=== PATIENT | female | born 1970 | race Caucasian/White ===

== ENCOUNTER 2020-06-13 17:03 | Inpatient (IN) | payer OTHER ==
[~2020-06-13] VITALS: Ht 177.8 cm; Wt 93.9 kg
[~2020-06-13 17:03] MED LIST: BACTROBAN OINT22 GM EXT; MOBIC7.5 MG PO
[2020-06-13 17:55] LABS: HEMOGLOBIN 15.8 gm/dl (12.3-15.3); RED BLOOD COUNT 4.91 M/UL (4.00-5.10); WHITE BLOOD COUNT 15.3 K/UL (4.5-11.0)
[2020-06-13 18:20] LABS: BUN/CREATININE RATIO 9 (0-10)
[2020-06-13] MEDS ORDERED: ABILIFY30 MG PO (21:07)
[2020-06-13] MEDS ORDERED: AMOXICILLIN500 MG PO (21:07)
[2020-06-13] MEDS ORDERED: DELSYM30 MG/5 ML PO (21:08)
[2020-06-13] MEDS ORDERED: NEURONTIN 100100 MG PO (21:08)
[2020-06-13] MEDS ORDERED: DEPAKOTE ER500 MG PO (21:09)
[2020-06-13] MEDS ORDERED: DIABETA 5 MG TAB5 MG PO (21:09)
[2020-06-13] MEDS ORDERED: ZESTRIL5 MG PO (21:10)
[2020-06-13] MEDS ORDERED: OMEPRAZOLE20 MG PO (21:10)
[2020-06-13] MEDS ORDERED: CLARITIN10 M2 PO (21:10)
[2020-06-13] MEDS ORDERED: HYDROXYZINE HCL50 MG PO (21:10)
[2020-06-13] MEDS ORDERED: ZOCOR20 MG PO (21:11)
[2020-06-13] MEDS ORDERED: CYCLOBENZAPRINE10 MG PO (21:11)
[2020-06-13] MEDS ORDERED: DESYREL 50 MG T50 MG PO (21:11)
[2020-06-13] MEDS ORDERED: JANUMET 50-1,01 EACH PO (21:12)
[2020-06-13] MEDS ORDERED: VITAMIN D31250 MCG PO (21:13)
[2020-06-13] MEDS ORDERED: VENTOLIN HFA 66.7 GM INH (21:13)
[2020-06-13] MEDS ORDERED: FOLIC ACID 1 MG1 MG PO (21:13)
[2020-06-13] MEDS ORDERED: XYZAL5 MG PO (21:14)
[2020-06-13] MEDS ORDERED: ROBAXIN-750750 MG PO (21:14)
[2020-06-13] MEDS ORDERED: BASAGLAR K100 UNIT/1 SQ (21:15)
[2020-06-14 01:56] LABS: HEMOGLOBIN 14.2 gm/dl (12.3-15.3); RED BLOOD COUNT 4.53 M/UL (4.00-5.10)
[2020-06-14 02:30] LABS: BUN/CREATININE RATIO 8 (0-10)
[2020-06-15 04:36] LABS: HEMOGLOBIN 13.4 gm/dl (12.3-15.3); RED BLOOD COUNT 4.3 M/UL (4.00-5.10)
[2020-06-15 04:38] LABS: WHITE BLOOD COUNT 6.7 K/UL (4.5-11.0)
[2020-06-15 04:58] LABS: BUN/CREATININE RATIO 6 (0-10)
[2020-06-16 04:07] LABS: HEMOGLOBIN 12.5 gm/dl (12.3-15.3); RED BLOOD COUNT 4.03 M/UL (4.00-5.10)
[2020-06-16 04:39] LABS: BUN/CREATININE RATIO 6 (0-10)
[2020-06-16] MEDS ORDERED: DIVALPROEX SOD500 MG PO (11:44)
[2020-06-16] MEDS ORDERED: GLUCOPHAGE1000 MG PO (12:05)
== END 2020-06-16 15:01 | disposition home or self-care (01) | DRG 440 ==
LOC: ER1 17:03 → MED SURG 4 20:39 → CDU 20:39 → MED SURG 4 22:33
PROVIDERS: Internal Medicine; Physician Assistant; ADMIT Internal Medicine
DX: K85.90 Acute pancreatitis without necrosis or infection, unspecified (principal); Z90.49 Acquired absence of other specified parts of digestive tract; Z95.0 Presence of cardiac pacemaker; Z88.1 Allergy status to other antibiotic agents; Z88.5 Allergy status to narcotic agent; Z20.822 Contact with and (suspected) exposure to COVID-19; Z88.8 Allergy status to other drugs, medicaments and biological substances; R07.9 Chest pain, unspecified; E11.9 Type 2 diabetes mellitus without complications; I10 Essential (primary) hypertension; J44.9 Chronic obstructive pulmonary disease, unspecified; F17.210 Nicotine dependence, cigarettes, uncomplicated; F31.9 Bipolar disorder, unspecified; Z85.41 Personal history of malignant neoplasm of cervix uteri; E87.6 Hypokalemia
CPT/HCPCS: 36415; 71045; 76705; 80053; 81001; 82150; 82550; 82553; 82962; 83690; 83874; 84478; 84484; 85025; 85027; 96374; 96375; 99285; C9113; J1650; J2270; J2405; J3480; J7120; Q9967; U0002

== ENCOUNTER 2020-07-23 22:19 | Emergency (ER) | payer OTHER ==
[~2020-07-23 22:19] MED LIST changes: +ABILIFY30 MG PO; +AMOXICILLIN500 MG PO; +BASAGLAR K100 UNIT/1 SQ; +CLARITIN10 M2 PO; +CYCLOBENZAPRINE10 MG PO; +DELSYM30 MG/5 ML PO; +DEPAKOTE ER500 MG PO; +DESYREL 50 MG T50 MG PO; +DIABETA 5 MG TAB5 MG PO; +DIVALPROEX SOD500 MG PO; +FOLIC ACID 1 MG1 MG PO; +GLUCOPHAGE1000 MG PO; +HYDROXYZINE HCL50 MG PO; +JANUMET 50-1,01 EACH PO; +NEURONTIN 100100 MG PO; +OMEPRAZOLE20 MG PO; +ROBAXIN-750750 MG PO; +VENTOLIN HFA 66.7 GM INH; +VITAMIN D31250 MCG PO; +XYZAL5 MG PO; +ZESTRIL5 MG PO; +ZOCOR20 MG PO
[2020-07-23 23:22] LABS: HEMOGLOBIN 15.4 gm/dl (12.3-15.3); RED BLOOD COUNT 4.84 M/UL (4.00-5.10); WHITE BLOOD COUNT 10.8 K/UL (4.5-11.0)
[2020-07-23 23:39] LABS: BUN/CREATININE RATIO 4 (0-10)
== END 2020-07-24 03:11 | disposition home or self-care (01) ==
LOC: ER1 22:19
PROVIDERS: Emergency Medicine; Physician Assistant
DX: E87.6 Hypokalemia (principal); E11.9 Type 2 diabetes mellitus without complications; I11.9 Hypertensive heart disease without heart failure; E78.5 Hyperlipidemia, unspecified; F17.210 Nicotine dependence, cigarettes, uncomplicated; Z88.8 Allergy status to other drugs, medicaments and biological substances; Z79.899 Other long term (current) drug therapy
CPT/HCPCS: 70450; 71045; 80053; 80307; 81001; 82550; 82553; 83874; 84484; 85025; 93005; 99284; 99285

== ENCOUNTER 2020-10-19 18:30 | Emergency (ER) | payer OTHER ==
[2020-10-19 19:13] LABS: HEMOGLOBIN 15.5 gm/dl (12.3-15.3); RED BLOOD COUNT 4.89 M/UL (4.00-5.10); WHITE BLOOD COUNT 9.9 K/UL (4.5-11.0)
[2020-10-19 19:26] LABS: BUN/CREATININE RATIO 11 (0-10)
[2020-10-19] MEDS ORDERED: MACROBID 100 M100 M1 PO (22:01)
[2020-10-19] MEDS ORDERED: MOBIC15 MG PO (22:01)
== END 2020-10-19 22:14 | disposition home or self-care (01) ==
LOC: ER1 18:30
DX: S16.1XXA Strain of muscle, fascia and tendon at neck level, initial encounter (principal); S29.012A Strain of muscle and tendon of back wall of thorax, initial encounter; S39.012A Strain of muscle, fascia and tendon of lower back, initial encounter; S20.212A Contusion of left front wall of thorax, initial encounter; N39.0 Urinary tract infection, site not specified; Z20.822 Contact with and (suspected) exposure to COVID-19; E11.9 Type 2 diabetes mellitus without complications; I10 Essential (primary) hypertension; F17.200 Nicotine dependence, unspecified, uncomplicated; Z95.0 Presence of cardiac pacemaker; Z88.8 Allergy status to other drugs, medicaments and biological substances; Y04.2XXA Assault by strike against or bumped into by another person, initial encounter
CPT/HCPCS: 0240U; 71045; 72040; 72072; 72100; 80053; 81001; 82550; 82553; 83874; 84484; 85025; 93005; 99285

== ENCOUNTER → 2020-12-31 | Outpatient (CLI) | payer OTHER ==
[~2020-12-31] MED LIST changes: +MACROBID 100 M100 M1 PO; +MOBIC15 MG PO
== END ==
LOC: KOH-I 13:49
DX: M79.671 Pain in right foot (principal); M79.89 Other specified soft tissue disorders
CPT/HCPCS: 73630

== ENCOUNTER → 2021-05-01 | Outpatient (CLI) | payer OTHER | LOC: WCC 07:14 | DX: E11.621 Type 2 diabetes mellitus with foot ulcer (principal); L97.413 Non-pressure chronic ulcer of right heel and midfoot with necrosis of muscle; E11.40 Type 2 diabetes mellitus with diabetic neuropathy, unspecified; I10 Essential (primary) hypertension; B18.2 Chronic viral hepatitis C; F17.210 Nicotine dependence, cigarettes, uncomplicated; Z88.5 Allergy status to narcotic agent; Z88.8 Allergy status to other drugs, medicaments and biological substances | CPT/HCPCS: 87070; 87077; 87186; 87205 ==

== ENCOUNTER 2021-07-14 20:46 | Emergency (ER) | payer OTHER ==
[2021-07-14 21:38] LABS: HEMOGLOBIN 13.6 gm/dl (12.3-15.3); RED BLOOD COUNT 4.46 M/UL (4.00-5.10); WHITE BLOOD COUNT 9.7 K/UL (4.5-11.0)
[2021-07-14 22:03] LABS: BUN/CREATININE RATIO 18 (0-10)
[2021-07-15] MEDS ORDERED: MELOXICAM10 MG PO (01:12)
== END 2021-07-15 01:35 | disposition home or self-care (01) ==
LOC: ER1 20:46
PROVIDERS: Student in an Organized Health Care Education/Training Program
DX: R07.9 Chest pain, unspecified (principal); E11.9 Type 2 diabetes mellitus without complications; I10 Essential (primary) hypertension; Z88.0 Allergy status to penicillin; Z88.8 Allergy status to other drugs, medicaments and biological substances; Z95.0 Presence of cardiac pacemaker
CPT/HCPCS: 71045; 80053; 81001; 82550; 82553; 83690; 84484; 85025; 85379; 93005; 96374; 96375; 99285; J2270; J2405; Q9967

== ENCOUNTER → 2021-07-25 | Outpatient (CLI) | payer OTHER ==
[~2021-07-25] MED LIST changes: +MELOXICAM10 MG PO
== END ==
LOC: NM 05-28 10:00 → HEART 5 08:29
DX: R07.9 Chest pain, unspecified (principal); R00.2 Palpitations
CPT/HCPCS: 78452; A9502; J2785